=== PATIENT | male | born 2000 ===

== ENCOUNTER 2020-11-21 17:13 | Emergency (ER) | payer MEDICAID ==
[~2020-11-21] VITALS: Ht 172.7 cm; Wt 60.0 kg
--- NOTE | 2020-11-21 19:55 | NUR ---
dc paper work given, pt educated on covid measures and quarantine. pt amb to [facility].
[2020-11-21 19:56] VITALS: BP 127/77
== END 2020-11-21 20:05 | disposition home or self-care (01) ==
LOC: ED 17:18
DX: U07.1 COVID-19 (principal); J00 Acute nasopharyngitis [common cold]; F17.210 Nicotine dependence, cigarettes, uncomplicated
CPT/HCPCS: 71045; 99284; U0003; U0005